=== PATIENT | female | born 1965 | race Caucasian/White ===

== ENCOUNTER 2016-12-05 14:08 | Emergency (ER) | payer OTHER, MEDICARE ==
[~2016-12-05 14:08] MED LIST: ASPIRIN EC81 MG PO; IMDUR ER TAB 3030 MG PO; LIPITOR40 MG PO; VISTARIL 25 MG25 MG PO
[2016-12-05 19:45] LABS: HEMOGLOBIN 14.8 gm/dl (12.3-15.3); RED BLOOD COUNT 4.39 M/UL (4.00-5.10)
[2016-12-05 20:03] LABS: BUN/CREATININE RATIO 17 (0-10)
== END 2016-12-06 00:48 | disposition home or self-care (01) ==
LOC: ER1 14:08
PROVIDERS: Family Medicine
DX: G45.9 Transient cerebral ischemic attack, unspecified (principal); I25.10 Atherosclerotic heart disease of native coronary artery without angina pectoris; Z95.5 Presence of coronary angioplasty implant and graft; F17.210 Nicotine dependence, cigarettes, uncomplicated
CPT/HCPCS: 36415; 70450; 71010; 80053; 81001; 82550; 82553; 83874; 84484; 85025; 85610; 85730; 87086; 93005; 99284

== ENCOUNTER 2016-12-07 18:12 | Emergency (ER) | payer OTHER, MEDICARE | END 2016-12-07 19:16 | disposition home or self-care (01) | LOC: ER1 18:12 | DX: J11.1 Influenza due to unidentified influenza virus with other respiratory manifestations (principal) | CPT/HCPCS: 99283 ==

== ENCOUNTER 2021-12-04 16:35 | Emergency (ER) | payer OTHER ==
[~2021-12-04 16:35] MED LIST changes: +BACTRIM DS TAB1 EACH PO; +CLEOCIN T30 GM TP; +CLINDAMYCIN 150 MG PO; +COLACE 100MG C100 MG PO; +LEVOFLOXACIN250 MG PO; +OMNICEF 300 MG300 MG PO; +PYRIDIUM200 MG PO; +ZOFRAN4 MG PO
[2021-12-04 17:48] LABS: HEMOGLOBIN 13.6 gm/dl (12.3-15.3); RED BLOOD COUNT 4.16 M/UL (4.00-5.10); WHITE BLOOD COUNT 8.1 K/UL (4.5-11.0)
[2021-12-04] MEDS ORDERED: BACTRIM DS TAB1 EACH PO (20:24)
[2021-12-04] MEDS ORDERED: CLEOCIN HCL150 MG PO (20:24)
== END 2021-12-04 20:59 | disposition home or self-care (01) ==
LOC: ER1 16:35
PROVIDERS: Nurse Practitioner
DX: S81.851A Open bite, right lower leg, initial encounter (principal); W54.0XXA Bitten by dog, initial encounter; L03.115 Cellulitis of right lower limb; M25.561 Pain in right knee; Z23 Encounter for immunization; I51.9 Heart disease, unspecified; F17.210 Nicotine dependence, cigarettes, uncomplicated; Z88.0 Allergy status to penicillin; Z88.5 Allergy status to narcotic agent; X50.9XXA Other and unspecified overexertion or strenuous movements or postures, initial encounter
CPT/HCPCS: 73562; 85025; 85652; 86140; 90471; 90715; 96374; 99283

== ENCOUNTER 2022-02-13 07:32 | Emergency (ER) | payer OTHER ==
[~2022-02-13 07:32] MED LIST changes: +CLEOCIN HCL150 MG PO
[2022-02-13 08:18] LABS: HEMOGLOBIN 13.8 gm/dl (12.3-15.3); RED BLOOD COUNT 4.2 M/UL (4.00-5.10); WHITE BLOOD COUNT 10.8 K/UL (4.5-11.0)
[2022-02-13 08:41] LABS: BUN/CREATININE RATIO 25 (0-10)
== END 2022-02-13 09:15 | disposition home or self-care (01) ==
LOC: ER1 07:32
PROVIDERS: Physician Assistant
DX: M25.561 Pain in right knee (principal); F17.210 Nicotine dependence, cigarettes, uncomplicated; Z87.828 Personal history of other (healed) physical injury and trauma; Z51.81 Encounter for therapeutic drug level monitoring
CPT/HCPCS: 80053; 83605; 85025; 85610; 99283; J7030